=== PATIENT | male | born 2000 | race Two or more races ===

== ENCOUNTER 2020-04-05 21:48 | Emergency (ER) | payer OTHER ==
[2020-04-05 22:01] VITALS: BP 139/91; BMI 28.2
[2020-04-05] MEDS ORDERED: ACETAMINOPHEN 500 MG TABLET (FP) PO ONE (22:09)
[2020-04-05] MEDS ORDERED: ACETAMINOPHEN 500 MG TABLET (FP) ONE (22:14)
[2020-04-05 23:08] VITALS: TEMP 99.7
[2020-04-05] MEDS ORDERED: ALPRAZolam 1 MG TABLET PO PRN (23:54)
[2020-04-05 23:55] VITALS: PULSE 107
[2020-04-05] MEDS ORDERED: ALPRAZolam 0.25 MG TABLET ONE (23:56)
== END 2020-04-06 00:03 | disposition home or self-care (01) ==
LOC: FER 21:48
DX: R00.2 Palpitations (principal)
CPT/HCPCS: 93005; 99284-25